=== PATIENT | male | born 1935 | race Caucasian/White ===

== ENCOUNTER 2018-02-14 17:44 | Emergency (ER) | payer OTHER, MEDICARE ==
[~2018-02-14] VITALS: Ht 165.1 cm; Wt 85.3 kg
[~2018-02-14 17:44] MED LIST: NASONEX0.05 MG/Ac NAS; NOVAPLUS V0.09 MG/Ac INH; ZITHROMAX Z-PA250 M1 PO
[2018-02-14 18:05] VITALS: BP 180/80
--- NOTE | 2018-02-14 18:08 | ED INFLUENZA/URI COMPLAINT ---
History of Present Illness General Chief Complaint: Upper Respiratory Sx/Fever Stated Complaint: COUGHING,CHEST CONGESTION ON AMOX, NOT BETTER Source: patient Exam Limitations: no limitations Vital Signs & Intake/Output Vital Signs & Intake/Output Vital Signs Date Time Temp Pulse Resp B/P B/P Pulse O2 O2 Flow FiO2 Mean Ox Delivery Rate 02/14 1900 95 02/14 1805 98.5 80 16 180/80 98 Room Air Room Air ED Intake and Output 02/15 0000 02/14 1200 Intake Total Output Total 200 Balance -200 Output, Urine 200 Patient 188 lb Weight Allergies Coded Allergies: No Known Allergies (02/14/18) Reconcile Medications Albuterol Sulfate (Ventolin Hfa) 90 MCG HFA.AER.AD 2 PUF INH Q4-6 PRN PRN SHORTNESS OF BREATH Albuterol Sulfate (Ventolin Hfa) 90 MCG HFA.AER.AD 2 PUF INH Q4-6 PRN PRN SHORTNESS OF BREATH Amoxicillin/Clavulanate Potass (Amox-Clav 875-125 MG Tablet) 875 MG-125 MG TABLET 1 TAB PO BID ABX (Reported) Azithromycin (Zithromax) 500 MG TABLET 1 TAB PO DAILY BRONCHITIS Benzonatate (Tessalon Perle) 100 MG CAPSULE 1 CAP PO TID PRN cough Benzonatate (Tessalon Perle) 100 MG CAPSULE 1 CAP PO TID PRN COUGH Clonazepam 1 MG TABLET 1 TAB PO QPM ANXIETY (Reported) Codeine Phosphate/Guaifenesi (Cheratussin AC Syrup) 10 MG-100 MG/5 ML LIQUID 10 ML PO QPM PRN COUGH 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 PT HAS BEEN TAKING AUGMENTIN FOR 7-8 DAYS. Triage Nurses Notes Reviewed? yes Onset: Gradual Duration: constant Timing: recent history Severity: moderate Severity Numbers: 5 HPI: Patient is a 82-year-old male with a past medical history of hypertension hyperlipidemia and hypothyroidism who presents emergency room with a 8-90 history of persistent cough pleuritic chest pain who was prescribed 875 mg of Augmentin 5 days ago by his primary care doctor within no imaging was obtained for concerns of pneumonia patient return to emergency room stating that he feels no better. Patient denies any nausea vomiting leg swelling or hemoptysis dyspnea on exertion chills. Patient is a former smoker no similar sick contacts (Asif Lee) Past History Travel History Traveled to [place] past 21 day No Medical History Any Pertinent Medical History? see below for history Neurological: NONE EENT: NONE Cardiovascular: hyperlipidemia Respiratory: NONE Gastrointestinal: NONE Hepatic: NONE Renal: benign prost hyperplasia Musculoskeletal: NONE Psychiatric: anxiety Endocrine: hypothyroidism Blood Disorders: NONE Cancer(s): head/neck cancer USABILITY ENGINEER/Reproductive: NONE Surgical History Surgical History: non-contributory Psychosocial History Who do you live with Spouse What is your primary language Vietnamese Tobacco Use: Never used ETOH Use: occasional use Illicit Drug Use: denies illicit drug use Family History Hx Contributory? No (Asif Lee) Review of Systems Review of Systems Constitutional: Reports: no symptoms. EENTM: Reports: no symptoms. Respiratory: Reports: see HPI, cough. Cardiovascular: Reports: no symptoms. GI: Reports: no symptoms. Genitourinary: Reports: no symptoms. Musculoskeletal: Reports: no symptoms. Skin: Reports: no symptoms. Neurological/Psychological: Reports: no symptoms. Hematologic/Endocrine: Reports: no symptoms. Immunologic/Allergic: Reports: no symptoms. All Other Systems: Reviewed and Negative (Asif Lee) Physical Exam Physical Exam General Appearance: no apparent distress, alert, comfortable Head: atraumatic Eyes: Bilateral: normal appearance. Ears, Nose, Throat: normal ENT inspection, moist mucous membrane, hearing grossly normal Neck: normal inspection, supple Respiratory: quiet respiration, decreased breath sounds Cardiovascular: regular rate/rhythm Peripheral Pulses: 2+ radial (R) Gastrointestinal: normal bowel sounds, soft, non-tender Extremities: normal inspection, no edema Neurologic/Psych: no motor/sensory deficits, awake, alert Skin: intact, normal color, warm/dry Core Measures Sepsis Present: No Sepsis Focused Exam Completed? No (Asif Lee) Progress Differential Diagnosis: influenza, meningitis, neutropenia, otitis, pneumonia, pharyngitis, sinusitis Plan of Care: Orders Procedure Date/time Status Add-on Test (ER Only) 02/14 2022 Active D-DIMER 02/15 1920 Complete TROPONIN LEVEL 02/14 1823 Complete COMPREHENSIVE METABOLIC PANEL 02/14 1823 Complete CBC WITHOUT DIFFERENTIAL 02/14 1823 Complete EKG 02/14 1823 Active RAPID VIRAL INFLUENZA A 02/14 175 Complete Laboratory Tests 02/14/18 2300: Troponin I Cancelled 02/14/182021: D-Dimer High Sensitivty Cancelled 02/14/181919: Anion Gap 13, Estimated GFR 58 L, BUN/Creatinine Ratio 16.7, Glucose 94, Calcium 9.0, Total Bilirubin 1.1, AST 29, ALT 28, Alkaline Phosphatase 58, Troponin I < 0.01, Total Protein 6.8, Albumin 4.0, Globulin 2.8, Albumin/ Globulin Ratio 1.4, D-Dimer High Sensitivty 219, CBC w Diff NO MAN DIFF REQ, RBC 4.72, MCV 86.9, MCH 29.0, MCHC 33.3, RDW 14.3, MPV 7.7, Gran % 69.6, Lymphocytes % 19.2 L, Monocytes % 8.3, Eosinophils % 2.7, Basophils % 0.2, Absolute Granulocytes 4.2, Absolute Lymphocytes 1.2, Absolute Monocytes 0.5, Absolute Eosinophils 0.2, Absolute Basophils 0 Microbiology 02/14 1901 NASOPHARYN: Influenza Virus A & B Rapid Smear - COMP Patient on initial presentation was afebrile nontoxic appearing no apparent distress, nebulizer was ordered for decreased breath sounds, After patient was given nebulizer treatment he states he feels better however he does note of blood-tinged mucus production A d-dimer will be ordered D-dimer was negative no concern at this time of pulmonary embolism Due to patient's persistent pneumonia concerns unrelieved with antibiotics the patient's chest x-ray also shows persistent pneumonia in which she was strongly advised to be admitted for failed outpatient treatment. he was alert and oriented afebrile nontoxic appearing and was active passive make decisions for himself who stated that he did not want to be admitted and wanted an azithromycin Z-Wilber for his symptoms as "this worked in the past". Discussed the risks of leaving AGAINST MEDICAL ADVICE of symptoms a worsen who he was aware and signed AMA form. Diagnostic Imaging: Viewed by Me: Radiology Read. CXR Impression: PNEUMONIA Initial ED EKG: normal QRS complex, NSR, 68 BPM,MULTIPLE ARTIFACT Prior EKG: unchanged Comments: PATIENT: JUSTIN GARCIA PRESENT AGE: 82 PATIENT ACCOUNT NO: [id number] : 36 LOCATION: [facility] ORDERING PHYSICIAN: Asif MAYFIELD SERVICE DATE: 02/14/18 EXAM TYPE: RAD - XRY-CHEST XRAY, TWO VIEWS EXAMINATION: XR CHEST CLINICAL INFORMATION: Cough. COMPARISON: 04/07/2011 TECHNIQUE: 2 views of the chest were obtained. FINDINGS: Cardiac and mediastinal silhouette is normal. There is prominent focus of airspace disease in the right upper lobe, concerning for pneumonia. Unchanged appearance of bilateral lower lobes, without focal consolidation identified. No pulmonary edema or pneumothorax. Blunting of the right costophrenic angle, is unchanged, from pleural thickening or trace effusion. No acute osseous abnormality. IMPRESSION: 1. Prominent focus of airspace disease in the right upper lobe, concerning for pneumonia. 2. Unchanged blunting of the right costophrenic angle. DICTATED BY: Dustin Bergman MD DATE/TIME DICTATED:02/14/182032 DECKHAND CRAB BOAT:OSKAR DATE/TIME TRANSCRIBED:02/14/18 (Wagner MAYFIELD,Asif) Departure Departure Disposition: LEFT AGAINST MEDICAL ADVICE Condition: Stable Clinical Impression Primary Impression: Pneumonia Referrals: Leroy Britt DO (PCP/Family) Additional Instructions: As discussed to her leaving AGAINST MEDICAL ADVICE, if symptoms worsen return to emergency room, begin the prescription of azithromycin for the full course Cheratussin Tessalon pearls for cough and Ventolin for shortness of breath, prescription is waiting at [facility]. 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 I have also reviewed all the pertinent lab results and diagnostic results. I agree with the findings and the plan of care as documented in the PA's/SOCIAL WORK MANAGER's documentation. [x] I have reviewed the ED Record and agree with the PA's/SOCIAL WORK MANAGER's documentation. [] Additions or exceptions (if any) to the PAs/SOCIAL WORK MANAGER's note and plan are summarized below: [] (Gretel RESTREPO,Evans Mcfadden)
[2018-02-14] MEDS ORDERED: SIMVASTATIN20 M2 PO (19:30)
[2018-02-14] MEDS ORDERED: TAMSULOSIN HCL0.4 M1 PO (19:30)
[2018-02-14] MEDS ORDERED: CLONAZEPAM1 M2 PO (19:30)
[2018-02-14] MEDS ORDERED: LEVOTHYROXINE75 MCG PO (19:30)
[2018-02-14] MEDS ORDERED: AMOX-CLAV 875-1 EACH PO (19:31)
[2018-02-14 19:32] LABS: ABSOLUTE BASOPHIL COUNT 0 /CUMM (0.0-0.2); ABSOLUTE EOSINOPHIL COUNT 0.2 /CUMM (0.0-0.7); ABSOLUTE GRANULOCYTE CT 4.2 /CUMM (1.4-6.5); ABSOLUTE LYMPH COUNT 1.2 /CUMM (1.2-3.4); ABSOLUTE MONOCYTE COUNT 0.5 /CUMM (0.10-0.60); BASOPHIL % 0.2 % (0.0-2.0); EOSINOPHIL % 2.7 % (0-5); GRANULOCYTE % 69.6 % (42.2-75.2); MEAN CORPUSCULAR HGB CONC 33.3 G/DL (33.0-37.0); MEAN CORPUSCULAR VOLUME 86.9 FL (80.0-94.0); MEAN PLATELET VOLUME 7.7 FL (7.4-10.4); PLATELET COUNT 125 /CUMM (130-400); RBC DISTRIBUTION WIDTH 14.3 % (11.5-14.5); RED BLOOD CELL CT 4.72 /CUMM (4.70-6.10)
[2018-02-14] MEDS ORDERED: CHERATUSSIN AC118 M1 PO ×2 (20:19→21:10)
[2018-02-14] MEDS ORDERED: TESSALON PERLE100 M1 PO ×2 (20:19→21:10)
[2018-02-14] MEDS ORDERED: VENTOLIN HFA18 GM INH ×2 (20:19→21:10)
[2018-02-14] MEDS ORDERED: ZITHROMAX500 M2 PO (21:02)
--- NOTE | 2018-02-14 22:02 | RADIOLOGY REPORT ---
EXAMINATION: XR CHEST CLINICAL INFORMATION: Cough. COMPARISON: 04/07/2011 TECHNIQUE: 2 views of the chest were obtained. FINDINGS: Cardiac and mediastinal silhouette is normal. There is prominent focus of airspace disease in the right upper lobe, concerning for pneumonia. Unchanged appearance of bilateral lower lobes, without focal consolidation identified. No pulmonary edema or pneumothorax. Blunting of the right costophrenic angle, is unchanged, from pleural thickening or trace effusion. No acute osseous abnormality. IMPRESSION: 1. Prominent focus of airspace disease in the right upper lobe, concerning for pneumonia. 2. Unchanged blunting of the right costophrenic angle.
== END 2018-02-14 21:31 | disposition left against medical advice (07) ==
LOC: ERH 17:44
PROVIDERS: Physician Assistant
DX: J18.9 Pneumonia, unspecified organism (principal); R07.89 Other chest pain
CPT/HCPCS: 1263; 71046; 87804; 87804-59; 93005; 93010